=== PATIENT | female | born 2005 | race Two or more races ===

== ENCOUNTER → 2024-08-13 | Outpatient (CLI) | payer OTHER, SELFPAY ==
--- NOTE | 2024-08-13 10:36 | XR_ITS ---
Examination: Breast ultrasound complete, bilateral Date and time of exam: August 05, 2024 1048 hours INDICATIONS: Bilateral breast tenderness today, patient states lump in the retroareolar region breast 3 months, family history breast cancer Technique: Real-time grayscale ultrasonographic imaging bilateral breasts, including all 4 quadrants as well as nipple retroareolar and axillary regions. Findings: Sonographic images right and left breast demonstrated no cystic or solid masses IMPRESSION: BI-RADS Category 1: Negative study
== END | disposition home or self-care (01) ==
LOC: CDIM 10:10
PROVIDERS: PCP Registered Nurse Community Health; Referring Provider Registered Nurse Community Health; Visit Provider Registered Nurse Community Health
DX: N64.4 Mastodynia (principal)
CPT/HCPCS: 76641